=== PATIENT | female | born 1935 | race Caucasian/White ===

== ENCOUNTER 2020-10-26 13:22 | Observation (INO) | payer MEDICARE ==
[~2020-10-26] VITALS: Ht 154.9 cm; Wt 72.6 kg
[~2020-10-26 13:22] MED LIST: COCONUT OIL1000 MG PO; HYDROCODONE-AP1 EAC6 PO; KEFLEX500 MG PO; LISINOPRIL10 MG PO; PRESERVISION L1 EACH PO; TURMERIC COMPL1 EACH PO
[2020-10-26 13:30] VITALS: BP 134/68
[2020-10-26] MEDS ORDERED: EUTHYROX25 MCG PO (13:36)
[2020-10-26] MEDS ORDERED: ELIQUIS5 MG PO (13:36)
[2020-10-26] MEDS ORDERED: PACERONE200 MG PO (13:36)
[2020-10-26] MEDS ORDERED: TOPROL XL25 MG PO (13:37)
[2020-10-26] MEDS ORDERED: VITAMIN D325 MC5 PO (13:37)
[2020-10-26] MEDS ORDERED: VITAMIN C500 M1 PO (13:38)
[2020-10-26 13:51] LABS: ABSOLUTE BASOPHILS 0.1 thou/uL (0.0-0.2); ABSOLUTE EOSINOPHILS 0.2 thou/uL (0.0-0.7); ABSOLUTE LYMPHOCYTES 1.2 thou/uL (0.8-5.3); ABSOLUTE MONOCYTES 0.8 thou/uL (0.0-1.2); ABSOLUTE NEUTROPHILS 7.5 thou/uL (1.6-8.1); BASOPHILS 0.6 %; HEMATOCRIT 33.8 % (37.0-47.0); HEMOGLOBIN 10.9 gm/dL (12.0-15.0); LYMPHOCYTES 12.6 %; MCH 28.2 pg (26.0-34.0); MCHC 32.2 g/dL (28.0-37.0); MCV 87.7 fL (80.0-100.0); MONOCYTES 8.4 %; MPV 7.4 fl. (7.2-11.1); NUCLEATED RBCS 0 /100WBC; PLATELET COUNT* 391 thou/uL (150-400); POLYS 76.4 %; RBC 3.86 mil/uL (4.20-5.00); RDW-CV 15.8 % (10.5-14.5); WBC 9.9 thou/uL (4.0-11.0)
[2020-10-26 13:59] LABS: CALCIUM 9.5 mg/dL (8.5-10.1); CREATININE 0.9 mg/dL (0.6-1.3); POTASSIUM 4.2 mmol/L (3.5-5.1)
[2020-10-26 14:03] LABS: APTT 26.6 Seconds (25.0-31.3); PROTIME 10.2 Seconds (9.20-11.50)
[2020-10-26 14:10] LABS: ALBUMIN 3.1 g/dL (3.4-5.0); TOTAL BILIRUBIN 0.2 mg/dL (<0.1-1.0); TOTAL PROTEIN 6.7 g/dL (6.4-8.2)
--- NOTE | 2020-10-26 15:02 | EKG ---
[place] [address] ELECTROCARDIOGRAM REPORT Name: TIMMYELISENIDIA COLINN JESSIKA Room: [facility]#: [id number] Admission: 10/26/20 Attend Phys: Discharge: Date of : 39 Date of Service: 10/26/20 1334 Report #: [id number] THIS REPORT FOR: //name// [facility] ED Test Date: 2020-10-26 Test Time: 13:34:05 Pat Name: AUBREY RICKS Department: Room: Gender: Upholsterer Outside: : 1935 Requested By: Laure Singer Order Number: [id number] MD: Zohaib Griffiths Measurements Intervals [place] Rate: 79 P: 60 NM: 137 QRS: 49 QRSD: 80 T: 27 QT: 379 QTc: 435 Interpretive Statements Sinus rhythm No previous ECG available for comparison Electronically Signed On 10-26-2020 15:02:30 [employer] by Zohaib Griffiths [email or web address] <ELECTRONICALLY SIGNED> By: Zohaib Griffiths MD, [facility] 10/26/20 1502 1334 33 Zohaib Griffiths MD, FACC /EPI
[2020-10-26] MEDS ORDERED: XARELTO20 MG PO (19:40)
[2020-10-26 21:16] VITALS: BP 135/80
[2020-10-26 21:28] VITALS: BP 123/70
--- NOTE | 2020-10-27 08:32 | CON ---
[address] [address] CONSULTATION Name: AUBREY RICKS Room: [address] Jacki Cleaning#: [id number] Admission: 10/26/20 Attend Phys: Orin Chris MD Discharge: 10/26/20 Date of : 39 Report #: [id number] THIS REPORT FOR: cc: All Samson MD, Kevin R. MD ~ Zohaib Griffiths MD [facility] DATE OF SERVICE: 10/26/2020 CARDIOLOGY CONSULTATION HISTORY OF PRESENT ILLNESS: The patient is an 85-year-old white female who I was asked to see in the Emergency Room today because of her previous history of atrial fibrillation. Unfortunately, there are no old records available. The patient has an extensive and complicated past medical history. She apparently has a history of breast cancer years ago and had mastectomy followed by chemotherapy and radiation therapy at . She notes, however, that last April, she was found to have a cyst in her left leg. She had resection of the cyst, was found to have squamous cell carcinoma. She then was noted to have enlarged lymph nodes of her left groin. She was readmitted to and had a lymph node resection at in August. Apparently postoperatively, she had atrial fibrillation. She was started on amiodarone and Eliquis. She did not require cardioversion. She notes that recently she noticed some face itching and shortness of breath. She was concerned that she has been ALLERGIC TO ELIQUIS. She denied any bleeding. She denied any cough, fever. She has had occasional chest pressure. It is not exertional to ____. She denied any palpitations. PAST MEDICAL HISTORY: Otherwise, she has had hysterectomy, both knee replacements, hip surgery, hypertension. CURRENT MEDICATIONS: Include metoprolol, amiodarone and Eliquis. She recently started on Synthroid. ALLERGIES: SHE HAS AN ALLERGY TO PENICILLIN. FAMILY HISTORY: Her mom had rheumatic heart disease. SOCIAL HISTORY: She is . She and her live here in [place]. No smoking. Rarely drinks alcohol. One cup of coffee a day. REVIEW OF SYSTEMS: No history of stroke, asthma, liver disease, kidney disease, psychiatric illness or chronic skin condition. PHYSICAL EXAMINATION: [place] [address] CONSULTATION Name: AUBREY RICKS [address] [id number] Admission: 10/26/20 Attend Phys: Orin Chris MD Discharge: 10/26/20 Date of : 39 Report #: [id number] GENERAL: Revealed an elderly female, who appeared in no distress. VITAL SIGNS: Blood pressure is 130/70, pulse 70. She is afebrile. HEENT: She was anicteric. Conjunctivae are pink. Mucous membranes moist. NECK: Veins nondistended. No carotid bruits. Neck supple. CHEST: Clear to auscultation. CARDIOVASCULAR: Regular rate and rhythm, no murmur. ABDOMEN: Soft. EXTREMITIES: There is a trace edema in the left lower extremity. Dorsalis pedis pulse 1+ bilaterally. SKIN: Cool and dry. NEUROLOGIC: Nonfocal. RADIOLOGICAL DATA: ECG showed a sinus rhythm. There was no QT prolongation. Workup in the Emergency Room, she had a chest x-ray that is pending. LABORATORY WORK: Sodium 143, potassium 4.2, creatinine 0.9. Liver function studies were normal. Troponin 0.06. White blood cell count 9.9, hemoglobin 10.9, hematocrit 33.8. COVID antigen test was negative. IMPRESSION AND RECOMMENDATIONS: 1. History of atrial fibrillation. The patient has been on Eliquis, but complains of itching. I would consider stopping Eliquis and switching to Xarelto. I would continue amiodarone at this time. I will attempt to obtain records from . 2. Squamous cell carcinoma. Recent removal of lymph nodes that were positive for squamous cell carcinoma. 3. Chest pressure. Atypical for angina. I would consider outpatient stress test. 4. History of breast cancer. 5. Hypertension. The patient is on a beta randy. <ELECTRONICALLY SIGNED> By: Zohaib Griffiths MD, FACC 10/27/20 0832 [id number] 09Zohaib Griffiths MD, FACC /nt
== END 2020-10-26 21:37 | disposition home or self-care (01) ==
LOC: M.ERS 13:22 → M.TBA-ER 16:32
PROVIDERS: Nurse Practitioner Family; ADMIT Internal Medicine; ATTEND Internal Medicine
DX: R07.89 Other chest pain (principal); R06.02 Shortness of breath; Z20.828 Contact with and (suspected) exposure to other viral communicable diseases; R22.0 Localized swelling, mass and lump, head; I10 Essential (primary) hypertension; I89.0 Lymphedema, not elsewhere classified; R79.89 Other specified abnormal findings of blood chemistry; J90 Pleural effusion, not elsewhere classified; J45.909 Unspecified asthma, uncomplicated; Z88.0 Allergy status to penicillin; Z91.040 Latex allergy status; Z90.89 Acquired absence of other organs; Z90.710 Acquired absence of both cervix and uterus; Z98.890 Other specified postprocedural states